=== PATIENT | male | born 1995 | race African-American/Black ===

== ENCOUNTER 2018-09-26 14:53 | Emergency (ER) | payer MEDICAID ==
[~2018-09-26] VITALS: Ht 203.2 cm; Wt 88.5 kg
[2018-09-26 15:14] VITALS: BP 134/83
[2018-09-26] MEDS ORDERED: KETOROLAC TROMETH 60MG/2ML VIAL IM ONE (17:00)
== END 2018-09-26 18:13 | disposition home or self-care (01) ==
LOC: ER 14:54
DX: S30.0XXA Contusion of lower back and pelvis, initial encounter (principal); F12.10 Cannabis abuse, uncomplicated; Z88.0 Allergy status to penicillin; W10.8XXA Fall (on) (from) other stairs and steps, initial encounter; Y93.39 Activity, other involving climbing, rappelling and jumping off; Y92.89 Other specified places as the place of occurrence of the external cause; Y99.8 Other external cause status
CPT/HCPCS: 72100; 72131; 96372; 99284; J1885